=== PATIENT | male | born 1935 | race Caucasian/White ===

== ENCOUNTER → 2017-02-17 | Outpatient (CLI) | payer MEDICARE ==
[~2017-02-17] MED LIST: ASPIRIN325 MG PO; CARVEDILOL6.25 MG PO; CIPROFLOXACIN500 MG PO; CLARITIN10 MG PO; CLOPIDOGREL BIS75 MG PO; COLESTID1 GM PO; COLESTIPOL1 GM PO; EPA FISH OIL1000 MG PO; Ecotrin325 MG PO; FLOMAX0.4 MG PO; LISINOPRIL10 MG PO; LISINOPRIL5 MG PO; OMEGA 31000 MG PO; PACERONE100 MG PO; PACERONE200 MG PO; PLAVIX75 MG PO; PRAVACHOL40 MG PO; TAMSULOSIN HYD0.4 MG PO
[2017-02-17 10:29] LABS: ALBUMIN 3.5 gm/dl (3.1-4.5); BILIRUBIN, TOTAL 0.5 mg/dl (0.2-1.0); POTASSIUM 4.4 mmol/L (3.5-5.1); TOTAL PROTEIN 7.3 gm/dL (6.4-8.2)
[2017-02-17 10:35] LABS: THYROID STIM HORMONE (HS) 3.04 uIU/ml (0.358-4.75)
== END | disposition home or self-care (01) ==
LOC: LAB 09:30
PROVIDERS: Internal Medicine Cardiovascular Disease
DX: I12.9 Hypertensive chronic kidney disease with stage 1 through stage 4 chronic kidney disease, or unspecified chronic kidney disease (principal); N18.3 Chronic kidney disease, stage 3 (moderate); I48.92 Unspecified atrial flutter; I25.5 Ischemic cardiomyopathy; E78.5 Hyperlipidemia, unspecified

== ENCOUNTER → 2017-02-23 | Outpatient (CLI) | payer MEDICARE ==
--- NOTE | ~2017-02-23 | PF ---
[place], [place] PULMONARY FUNCTION TEST NAME: [facility]IN [facility]ALLAG[facility] #: [id number] UNIT #: [id number] ROOM: DOCTOR: DARREN MOSES MD,MAC BIRTHDATE: [birth year] DOS: 02/23/2017 The test was done on 02/23/2017. HISTORY: The patient is noted as 81-year-old male, height of 71 inches, weight of 240 pounds, BMI 33.5, presented for complete pulmonary function test, which was ordered by Dr. Ge Perry. The testing was done for assessment for amiodarone therapy. The patient has not reported any ongoing acute respiratory symptoms. There was no past history of tobacco use listed. SPIROMETRY: The FVC were recorded 4 liters at 94% predicted value normal. FEV1 was noted 3.02 liters, 99% predicted value normal as well. Ratio of FEV1/FVC was noted as normal. There were no changes noted significant postbronchodilator test. Flow volume loop was noted as normal. Lung volume for the patient, thoracic gas volume recorded 122%, residual volume 134%, total lung capacity of 109%, which were also noted normal. The patient's lung diffusion is recorded 76% that was normal. The patient's airway resistance, passive conductance was noted normal. FINAL IMPRESSION: Normal pulmonary function test for this patient was noted clinical correlation would be advised as necessary. MAC BANKS MD CM:PFREPORT:PULMONARY FUNCTION TEST [id number] MAC MOSES MD
== END | disposition home or self-care (01) ==
LOC: CP 12:20
DX: Z79.899 Other long term (current) drug therapy (principal)

== ENCOUNTER → 2018-02-16 | Outpatient (CLI) | payer MEDICARE ==
[2018-02-16 10:19] LABS: BASO # 0.1 10*3/uL (0.0-0.1); BASO % 0.9 % (0.0-1.0); EOS # 0.2 10*3/uL (0.0-0.4); EOS % 3.2 % (1.0-4.0); HEMATOCRIT 42.4 % (42.0-52.0); HEMOGLOBIN 13.4 g/dl (14.0-18.0); LYMPH # 1.6 10*3/uL (1.3-4.4); LYMPH % 27.6 % (27.0-41.0); MEAN CELL VOLUME 94.4 fl (80.0-94.0); MEAN CORPUSCULAR HGB 29.8 pg (27.0-31.0); MEAN CORPUSCULAR HGB CONC 31.6 g/dl (33.0-37.0); MEAN PLATELET VOLUME 9.7 fl (9.6-12.3); MONO # 0.4 10*3/uL (0.1-1.0); MONO % 7.2 % (3.0-9.0); NEUT # 3.6 10*3/uL (2.3-7.9); NEUT % 60.9 % (47.0-73.0); PLATELET COUNT AUTOMATED 280 10*3/uL (130-400); RED BLOOD COUNT 4.49 10*6/uL (4.50-5.90); RED CELL DISTRI WIDTH 14.3 % (0-14.5); WHITE BLOOD COUNT 5.9 10*3/uL (4.8-10.8)
[2018-02-16 10:29] LABS: ALBUMIN 3.5 gm/dl (3.1-4.5); CREATININE 1.65 mg/dL (0.70-1.30); TOTAL PROTEIN 7.3 gm/dL (6.4-8.2)
== END | disposition home or self-care (01) ==
LOC: LAB 09:31
PROVIDERS: Internal Medicine Cardiovascular Disease
DX: I25.5 Ischemic cardiomyopathy (principal)

== ENCOUNTER → 2019-08-17 | Outpatient (CLI) | payer MEDICARE ==
--- NOTE | ~2019-08-17 | PF ---
[place], [place] PULMONARY FUNCTION TEST NAME: [facility] #: [id number] UNIT #: [id number] ROOM: DOCTOR: DARREN MOSES MD,MAC BIRTHDATE: [birth year] DOS: 08/17/2019 The testing was done on 08/17/2019. ORDERED BY: Colton Nix. HISTORY: The patient was noted 83-year-old male, height of 71 inches, weight of 235 pounds, BMI 32.8. assessment of amiodarone toxicity. SPIROMETRY: FVC 4.04 liters as 101% predicted value, FEV1 3.09 liters, 105% predicted value. Ratio of FEV1/FVC 77%. Flow volume loop was noted with very mild obstructive airway. LUNG VOLUME: Thoracic gas volume recorded 81%, total residual volume 99%, and total lung capacity 91%. The patient's airway resistance, passive conductance normal. The patient's lung diffusion mildly decreased 69%. FINAL IMPRESSION: Except mild reduction in lung diffusion. The rest of the pulmonary function tests were noted normal. Clinical correlation would be advised and radiology data. MAC BANKS MD CM:PFREPORT:PULMONARY FUNCTION TEST [id number] MAC MOSES MD
== END | disposition home or self-care (01) ==
LOC: CP 12:36 → LAB 12:36
DX: Z79.899 Other long term (current) drug therapy (principal)

== ENCOUNTER → 2020-04-22 | Outpatient (CLI) | payer MEDICARE ==
[2020-04-22 13:01] LABS: ALBUMIN 3.4 gm/dl (3.1-4.5); CREATININE 1.47 mg/dL (0.70-1.30); POTASSIUM 4.4 mmol/L (3.5-5.1); TOTAL PROTEIN 6.9 gm/dL (6.4-8.2)
== END | disposition home or self-care (01) ==
LOC: LAB 11:28
PROVIDERS: Internal Medicine Cardiovascular Disease
DX: E78.5 Hyperlipidemia, unspecified (principal); I25.5 Ischemic cardiomyopathy; I50.9 Heart failure, unspecified

== ENCOUNTER → 2020-05-01 | Outpatient (CLI) | payer MEDICARE | END | disposition home or self-care (01) | LOC: LAB 16:15 | DX: I25.5 Ischemic cardiomyopathy (principal); Z79.899 Other long term (current) drug therapy ==

== ENCOUNTER → 2021-01-31 | Outpatient (CLI) | payer MEDICARE ==
[2021-01-31 11:36] LABS: BASO % 0.9 % (0.0-1.0); EOS # 0.2 10*3/uL (0.0-0.4); EOS % 4.2 % (1.0-4.0); HEMATOCRIT 41.3 % (42.0-52.0); LYMPH # 1.2 10*3/uL (1.3-4.4); LYMPH % 27.5 % (27.0-41.0); MEAN CELL VOLUME 93.9 fl (80.0-94.0); MEAN PLATELET VOLUME 9.8 fl (9.6-12.3); MONO # 0.4 10*3/uL (0.1-1.0); MONO % 8.6 % (3.0-9.0); NEUT # 2.6 10*3/uL (2.3-7.9); NEUT % 58.6 % (47.0-73.0); PLATELET COUNT AUTOMATED 261 10*3/uL (130-400); RED CELL DISTRI WIDTH 13.3 % (0-14.5); WHITE BLOOD COUNT 4.5 10*3/uL (4.8-10.8)
[2021-01-31 12:07] LABS: ALBUMIN 3.3 gm/dl (3.1-4.5); CREATININE 1.53 mg/dL (0.70-1.30); POTASSIUM 4.2 mmol/L (3.5-5.1); TOTAL PROTEIN 6.9 gm/dL (6.4-8.2)
== END | disposition home or self-care (01) ==
LOC: LAB 11:16
PROVIDERS: ATTEND Internal Medicine Cardiovascular Disease
DX: E78.5 Hyperlipidemia, unspecified (principal); I51.89 Other ill-defined heart diseases; I25.5 Ischemic cardiomyopathy; I50.9 Heart failure, unspecified

== ENCOUNTER → 2021-02-05 | Outpatient (CLI) | payer MEDICARE | END | disposition home or self-care (01) | LOC: CP 08:23 | PROVIDERS: ATTEND Internal Medicine Cardiovascular Disease | DX: R94.2 Abnormal results of pulmonary function studies (principal); I25.5 Ischemic cardiomyopathy; I27.29 Other secondary pulmonary hypertension; Z92.29 Personal history of other drug therapy ==

== ENCOUNTER 2021-10-03 18:52 | Inpatient (IN) | payer MEDICARE ==
[~2021-10-03] VITALS: Ht 180.3 cm; Wt 100.7 kg
[~2021-10-03 18:52] MED LIST changes: -CLOPIDOGREL BIS75 MG PO; +CLOPIDOGREL75 MG PO
[2021-10-03 18:57] VITALS: BP 128/71
[2021-10-03 19:46] LABS: BASO % 0.2 % (0.0-1.0); LYMPH # 0.6 10*3/uL (1.3-4.4); LYMPH % 13.7 % (27.0-41.0); MEAN CELL VOLUME 92.2 fl (80.0-94.0); MEAN CORPUSCULAR HGB 29.9 pg (27.0-31.0); MEAN CORPUSCULAR HGB CONC 32.4 g/dl (33.0-37.0); MEAN PLATELET VOLUME 10.2 fl (9.6-12.3); MONO # 0.3 10*3/uL (0.1-1.0); MONO % 5.4 % (3.0-9.0); NEUT # 3.7 10*3/uL (2.3-7.9); NEUT % 80.5 % (47.0-73.0); PLATELET COUNT AUTOMATED 151 10*3/uL (130-400); RED BLOOD COUNT 4.12 10*6/uL (4.50-5.90); RED CELL DISTRI WIDTH 13.1 % (0-14.5); WHITE BLOOD COUNT 4.6 10*3/uL (4.8-10.8)
[2021-10-03 20:03] LABS: ALBUMIN 2.3 gm/dl (3.1-4.5); ALKALINE PHOSPHATASE 73 U/L (45-117); BUN 18 mg/dl (7-24); CHLORIDE 106 mmol/L (98-107); CPK 267 U/L (39-308); CREATININE 1.29 mg/dL (0.70-1.30); POTASSIUM 4.3 mmol/L (3.5-5.1); SGOT/AST 26 IU/L (3-35); SGPT/ALT 19 U/L (12-78); SODIUM 138 mmol/L (136-145); TOTAL PROTEIN 6.9 gm/dL (6.4-8.2)
[2021-10-03] MEDS ORDERED: ASPIRIN ADULT L81 M1 PO (20:52)
[2021-10-03] MEDS ORDERED: FUROSEMIDE20 M1 PO (20:53)
[2021-10-03] MEDS ORDERED: FINASTERIDE5 M1 PO (20:54)
[2021-10-03 21:07] VITALS: BP 110/63
[2021-10-03 22:03] VITALS: BP 107/60
[2021-10-03 23:03] VITALS: BP 114/56
[2021-10-03 23:30] VITALS: BP 115/72
[2021-10-04 08:00] VITALS: BP 128/74
[2021-10-04 12:00] VITALS: BP 118/69
[2021-10-04 16:00] VITALS: BP 126/66
[2021-10-04 20:00] VITALS: BP 145/77
[2021-10-05] VITALS: BP 156/74
[2021-10-05 08:00] VITALS: BP 108/45
[2021-10-05 12:00] VITALS: BP 153/77
[2021-10-05 16:00] VITALS: BP 123/71
[2021-10-05 20:00] VITALS: BP 143/79
[2021-10-06] VITALS: BP 148/88
[2021-10-06 06:18] LABS: ALBUMIN 2.1 gm/dl (3.1-4.5); ALKALINE PHOSPHATASE 79 U/L (45-117); BUN 34 mg/dl (7-24); CHLORIDE 111 mmol/L (98-107); CREATININE 1.16 mg/dL (0.70-1.30); HEMATOCRIT 37.4 % (42.0-52.0); LDH 230 U/L (87-241); MEAN CELL VOLUME 93.3 fl (80.0-94.0); MEAN CORPUSCULAR HGB 29.9 pg (27.0-31.0); MEAN CORPUSCULAR HGB CONC 32.1 g/dl (33.0-37.0); MEAN PLATELET VOLUME 10.4 fl (9.6-12.3); PLATELET COUNT AUTOMATED 243 10*3/uL (130-400); POTASSIUM 5.2 mmol/L (3.5-5.1); RED BLOOD COUNT 4.01 10*6/uL (4.50-5.90); RED CELL DISTRI WIDTH 13.1 % (0-14.5); SGOT/AST 39 IU/L (3-35); SGPT/ALT 46 U/L (12-78); SODIUM 143 mmol/L (136-145); TOTAL PROTEIN 6.1 gm/dL (6.4-8.2); WHITE BLOOD COUNT 9.8 10*3/uL (4.8-10.8)
[2021-10-06 07:35] LABS: ATYPICAL LYMPHS 1 % (0-0); BURR CELLS FEW; OVALOCYTES FEW; PLATELET SUFFICIENCY NORMAL (NORMAL); POLYCHROMASIA SLIGHT; TOTAL CELLS COUNTED 100 #CELLS
[2021-10-06 08:00] VITALS: BP 161/84
[2021-10-06 12:00] VITALS: BP 116/81; BP 163/82
[2021-10-06 16:00] VITALS: BP 141/87
[2021-10-06 20:00] VITALS: BP 158/96
[2021-10-07] VITALS: BP 163/95
[2021-10-07 00:07] VITALS: BP 167/83
[2021-10-07 06:30] LABS: HEMATOCRIT 36.2 % (42.0-52.0); LYMPH # 0.6 10*3/uL (1.3-4.4); LYMPH % 7.2 % (27.0-41.0); MEAN CELL VOLUME 91.6 fl (80.0-94.0); MEAN CORPUSCULAR HGB 29.4 pg (27.0-31.0); MEAN PLATELET VOLUME 10.3 fl (9.6-12.3); MONO # 0.4 10*3/uL (0.1-1.0); MONO % 5.2 % (3.0-9.0); NEUT # 6.7 10*3/uL (2.3-7.9); NEUT % 87.1 % (47.0-73.0); PLATELET COUNT AUTOMATED 254 10*3/uL (130-400); RED BLOOD COUNT 3.95 10*6/uL (4.50-5.90); RED CELL DISTRI WIDTH 12.9 % (0-14.5); WHITE BLOOD COUNT 7.7 10*3/uL (4.8-10.8)
[2021-10-07 06:50] LABS: BUN 31 mg/dl (7-24); CHLORIDE 110 mmol/L (98-107); POTASSIUM 4.3 mmol/L (3.5-5.1); SODIUM 142 mmol/L (136-145)
[2021-10-07 06:55] LABS: ALKALINE PHOSPHATASE 79 U/L (45-117); CREATININE 1.05 mg/dL (0.70-1.30); LDH 230 U/L (87-241); SGOT/AST 81 IU/L (3-35); SGPT/ALT 130 U/L (12-78); TOTAL PROTEIN 5.7 gm/dL (6.4-8.2)
[2021-10-07 08:00] VITALS: BP 127/70
[2021-10-07 12:00] VITALS: BP 117/68
[2021-10-07 16:00] VITALS: BP 118/74
[2021-10-07 20:00] VITALS: BP 129/63
[2021-10-08] VITALS: BP 168/83
[2021-10-08 07:24] LABS: BASO % 0.1 % (0.0-1.0); HEMATOCRIT 36.2 % (42.0-52.0); LYMPH # 0.6 10*3/uL (1.3-4.4); MEAN CELL VOLUME 91.4 fl (80.0-94.0); MEAN CORPUSCULAR HGB 29.5 pg (27.0-31.0); MEAN CORPUSCULAR HGB CONC 32.3 g/dl (33.0-37.0); MEAN PLATELET VOLUME 10.2 fl (9.6-12.3); MONO # 0.5 10*3/uL (0.1-1.0); MONO % 6.9 % (3.0-9.0); NEUT # 5.7 10*3/uL (2.3-7.9); PLATELET COUNT AUTOMATED 280 10*3/uL (130-400); RED BLOOD COUNT 3.96 10*6/uL (4.50-5.90); RED CELL DISTRI WIDTH 12.9 % (0-14.5); WHITE BLOOD COUNT 6.9 10*3/uL (4.8-10.8)
[2021-10-08 07:43] LABS: BUN 28 mg/dl (7-24); CHLORIDE 111 mmol/L (98-107); POTASSIUM 4.5 mmol/L (3.5-5.1); SODIUM 140 mmol/L (136-145)
[2021-10-08 07:46] LABS: ALKALINE PHOSPHATASE 77 U/L (45-117); CREATININE 1.01 mg/dL (0.70-1.30); LDH 217 U/L (87-241); SGOT/AST 38 IU/L (3-35); SGPT/ALT 100 U/L (12-78); TOTAL PROTEIN 5.6 gm/dL (6.4-8.2)
[2021-10-08 08:00] VITALS: BP 151/80
[2021-10-08] MEDS ORDERED: DECADRON6 M1 PO (08:24)
== END 2021-10-08 11:00 | disposition home or self-care (01) | DRG 177 ==
LOC: ED 18:52 → EDHOLD 20:40 → 4E 20:40
PROVIDERS: Emergency Medicine; Internal Medicine Critical Care Medicine; ADMIT Internal Medicine; ATTEND Internal Medicine
PROC: XW033E5 Introduction of Remdesivir Anti-infective into Peripheral Vein, Percutaneous Approach, New Technology Group 5 (ICD-10-PCS; principal; 2021-10-03)
DX: U07.1 COVID-19 (principal); J12.82 Pneumonia due to coronavirus disease 2019; J96.01 Acute respiratory failure with hypoxia; R00.1 Bradycardia, unspecified; R74.01 Elevation of levels of liver transaminase levels; E78.2 Mixed hyperlipidemia; N40.0 Benign prostatic hyperplasia without lower urinary tract symptoms; I10 Essential (primary) hypertension; I25.10 Atherosclerotic heart disease of native coronary artery without angina pectoris; E66.01 Morbid (severe) obesity due to excess calories; E78.00 Pure hypercholesterolemia, unspecified; D70.9 Neutropenia, unspecified; Z68.30 Body mass index [BMI] 30.0-30.9, adult

== ENCOUNTER → 2022-02-10 | Outpatient (CLI) | payer MEDICARE ==
[~2022-02-10] MED LIST changes: +ASPIRIN ADULT L81 M1 PO; +DECADRON6 M1 PO; +FINASTERIDE5 M1 PO; +FUROSEMIDE20 M1 PO
[2022-02-10 14:23] LABS: BASO # 0.1 10*3/uL (0.0-0.1); EOS # 0.2 10*3/uL (0.0-0.4); EOS % 3.1 % (1.0-4.0); HEMATOCRIT 40.6 % (42.0-52.0); LYMPH # 1.3 10*3/uL (1.3-4.4); LYMPH % 24.1 % (27.0-41.0); MEAN CELL VOLUME 93.3 fl (80.0-94.0); MEAN CORPUSCULAR HGB 29.4 pg (27.0-31.0); MEAN CORPUSCULAR HGB CONC 31.5 g/dl (33.0-37.0); MEAN PLATELET VOLUME 10.1 fl (9.6-12.3); MONO # 0.4 10*3/uL (0.1-1.0); MONO % 8.3 % (3.0-9.0); NEUT # 3.3 10*3/uL (2.3-7.9); NEUT % 63.3 % (47.0-73.0); PLATELET COUNT AUTOMATED 272 10*3/uL (130-400); RED BLOOD COUNT 4.35 10*6/uL (4.50-5.90); RED CELL DISTRI WIDTH 13.2 % (0-14.5); WHITE BLOOD COUNT 5.2 10*3/uL (4.8-10.8)
[2022-02-10 14:41] LABS: ALKALINE PHOSPHATASE 89 U/L (45-117); BUN 22 mg/dl (7-24); CHLORIDE 112 mmol/L (98-107); CREATININE 1.28 mg/dL (0.70-1.30); POTASSIUM 4.1 mmol/L (3.5-5.1); SGOT/AST 15 IU/L (3-35); SGPT/ALT 14 U/L (12-78); SODIUM 145 mmol/L (136-145)
== END | disposition home or self-care (01) ==
LOC: LAB 13:25
PROVIDERS: ATTEND Internal Medicine Cardiovascular Disease
DX: I25.5 Ischemic cardiomyopathy (principal); I50.9 Heart failure, unspecified; Z79.899 Other long term (current) drug therapy

== ENCOUNTER → 2022-07-02 | Outpatient (CLI) | payer MEDICARE ==
[2022-07-02 14:13] LABS: CHOLESTEROL 125 mg/dL (<200); LDL CHOLESTEROL 48 mg/dL (9-159); TRIGLYCERIDES 46 mg/dl (<150)
== END | disposition home or self-care (01) ==
LOC: LAB 13:34
PROVIDERS: ATTEND Internal Medicine Cardiovascular Disease
DX: E78.5 Hyperlipidemia, unspecified (principal)

== ENCOUNTER → 2022-08-26 | Outpatient (CLI) | payer MEDICARE ==
[2022-08-26 14:11] LABS: CHOLESTEROL 146 mg/dL (<200); LDL CHOLESTEROL 60 mg/dL (9-159); TRIGLYCERIDES 67 mg/dl (<150)
== END | disposition home or self-care (01) ==
LOC: LAB 13:26
PROVIDERS: ATTEND Internal Medicine Cardiovascular Disease
DX: E78.5 Hyperlipidemia, unspecified (principal)

== ENCOUNTER → 2022-12-11 | Outpatient (CLI) | payer MEDICARE ==
[2022-12-11 10:27] LABS: BASO % 0.5 % (0.0-1.0); EOS # 0.2 10*3/uL (0.0-0.4); EOS % 2.8 % (1.0-4.0); LYMPH # 1.1 10*3/uL (1.3-4.4); LYMPH % 18.1 % (27.0-41.0); MEAN CELL VOLUME 94.6 fl (80.0-94.0); MEAN CORPUSCULAR HGB 28.7 pg (27.0-31.0); MEAN CORPUSCULAR HGB CONC 30.4 g/dl (33.0-37.0); MEAN PLATELET VOLUME 9.5 fl (9.6-12.3); MONO # 0.6 10*3/uL (0.1-1.0); MONO % 9.7 % (3.0-9.0); NEUT % 68.4 % (47.0-73.0); PLATELET COUNT AUTOMATED 313 10*3/uL (130-400); RED BLOOD COUNT 2.96 10*6/uL (4.50-5.90); RED CELL DISTRI WIDTH 15.2 % (0-14.5); WHITE BLOOD COUNT 5.8 10*3/uL (4.8-10.8)
[2022-12-11 10:40] LABS: ALKALINE PHOSPHATASE 120 U/L (46-116); BUN 19 mg/dl (9-23); CHLORIDE 106 mmol/L (98-107); SGPT/ALT 28 U/L (10-49)
== END | disposition home or self-care (01) ==
LOC: LAB 09:43
PROVIDERS: ATTEND Internal Medicine
DX: C61 Malignant neoplasm of prostate (principal); C25.9 Malignant neoplasm of pancreas, unspecified; C78.00 Secondary malignant neoplasm of unspecified lung; I10 Essential (primary) hypertension

== ENCOUNTER → 2022-12-30 | Outpatient (CLI) | payer MEDICARE | END | disposition home or self-care (01) | LOC: LAB 12:19 | PROVIDERS: ATTEND Internal Medicine | DX: R82.79 Other abnormal findings on microbiological examination of urine (principal) ==

== ENCOUNTER → 2023-03-10 | Outpatient (CLI) | payer MEDICARE | END | disposition home or self-care (01) | LOC: CT 11:00 | PROVIDERS: ATTEND Internal Medicine | DX: R91.8 Other nonspecific abnormal finding of lung field (principal); C34.90 Malignant neoplasm of unspecified part of unspecified bronchus or lung; K44.9 Diaphragmatic hernia without obstruction or gangrene; I51.7 Cardiomegaly; N28.1 Cyst of kidney, acquired; E27.8 Other specified disorders of adrenal gland; R59.0 Localized enlarged lymph nodes ==

== ENCOUNTER → 2023-03-11 | Outpatient (CLI) | payer MEDICARE ==
[2023-03-11 13:40] LABS: BASO % 0.5 % (0.0-1.0); EOS # 0.1 10*3/uL (0.0-0.4); EOS % 1.3 % (1.0-4.0); HEMATOCRIT 35.9 % (42.0-52.0); LYMPH # 0.9 10*3/uL (1.3-4.4); LYMPH % 15.1 % (27.0-41.0); MEAN CELL VOLUME 89.1 fl (80.0-94.0); MEAN CORPUSCULAR HGB 27.5 pg (27.0-31.0); MEAN CORPUSCULAR HGB CONC 30.9 g/dl (33.0-37.0); MEAN PLATELET VOLUME 10.1 fl (9.6-12.3); MONO # 0.5 10*3/uL (0.1-1.0); MONO % 8.1 % (3.0-9.0); NEUT # 4.6 10*3/uL (2.3-7.9); NEUT % 74.7 % (47.0-73.0); PLATELET COUNT AUTOMATED 368 10*3/uL (130-400); RED BLOOD COUNT 4.03 10*6/uL (4.50-5.90); RED CELL DISTRI WIDTH 16.2 % (0-14.5); WHITE BLOOD COUNT 6.1 10*3/uL (4.8-10.8)
[2023-03-11 14:35] LABS: BUN 12 mg/dl (9-23); CHLORIDE 108 mmol/L (98-107); CHOLESTEROL 200 mg/dL (<200); LDL CHOLESTEROL 124 mg/dL (9-159); POTASSIUM 3.9 mmol/L (3.4-5.1); SGPT/ALT 458 U/L (10-49); THYROID STIM HORMONE (HS) 2.669 uIU/ml (0.550-4.780); TOTAL PROTEIN 6.4 gm/dL (6.0-8.0); TRIGLYCERIDES 72 mg/dl (<150)
[2023-03-11 14:37] LABS: ALKALINE PHOSPHATASE 1135 U/L (46-116)
== END | disposition home or self-care (01) ==
LOC: LAB 13:21
PROVIDERS: ATTEND Internal Medicine Cardiovascular Disease
DX: I25.5 Ischemic cardiomyopathy (principal); I50.89 Other heart failure; Z92.29 Personal history of other drug therapy; I50.9 Heart failure, unspecified; E78.5 Hyperlipidemia, unspecified

== ENCOUNTER 2023-03-16 10:07 | Emergency (ER) | payer MEDICARE ==
[~2023-03-16] VITALS: Ht 180.3 cm; Wt 86.2 kg
[2023-03-16 10:19] VITALS: BP 102/61
[2023-03-16 10:46] LABS: BASO % 0.5 % (0.0-1.0); EOS # 0.1 10*3/uL (0.0-0.4); EOS % 1.2 % (1.0-4.0); LYMPH # 0.8 10*3/uL (1.3-4.4); MEAN CELL VOLUME 85.6 fl (80.0-94.0); MEAN CORPUSCULAR HGB 27.9 pg (27.0-31.0); MEAN CORPUSCULAR HGB CONC 32.6 g/dl (33.0-37.0); MEAN PLATELET VOLUME 9.9 fl (9.6-12.3); MONO # 0.5 10*3/uL (0.1-1.0); MONO % 8.9 % (3.0-9.0); NEUT # 4.5 10*3/uL (2.3-7.9); NEUT % 75.1 % (47.0-73.0); PLATELET COUNT AUTOMATED 345 10*3/uL (130-400); RED BLOOD COUNT 3.62 10*6/uL (4.50-5.90); RED CELL DISTRI WIDTH 18.3 % (0-14.5); WHITE BLOOD COUNT 5.9 10*3/uL (4.8-10.8)
[2023-03-16 11:17] LABS: BUN 18 mg/dl (9-23); CHLORIDE 108 mmol/L (98-107); LIPASE 18 U/L (12-53); POTASSIUM 3.9 mmol/L (3.4-5.1); SGPT/ALT 186 U/L (10-49); TOTAL PROTEIN 6.1 gm/dL (6.0-8.0)
[2023-03-16 11:18] LABS: ALKALINE PHOSPHATASE 1002 U/L (46-116)
[2023-03-16 11:53] LABS: BILIRUBIN 3+ (Negative); BLOOD 2+ (Negative); CLARITY Clear (Clear); COLOR Dark Yellow (Yellow); GLUCOSE Negative (Negative); KETONE Negative (Negative); NITRITE Negative (Negative); PH 5.5 (4.5-8.0); SPECIFIC GRAVITY 1.025 (1.001-1.030)
[2023-03-16 11:54] LABS: LEUKO ESTERASE Trace (Negative)
[2023-03-16 12:14] LABS: BACTERIA 1+; CALCIUM OXALATE CRYSTALS 1+
== END 2023-03-16 13:24 | disposition home or self-care (01) ==
LOC: ED 10:07
PROVIDERS: Internal Medicine
DX: C79.9 Secondary malignant neoplasm of unspecified site (principal); R17 Unspecified jaundice; I10 Essential (primary) hypertension; I25.2 Old myocardial infarction; E78.00 Pure hypercholesterolemia, unspecified; Z98.890 Other specified postprocedural states; Z79.899 Other long term (current) drug therapy